=== PATIENT | female | born 1955 | race Caucasian/White ===

== ENCOUNTER 2020-07-11 10:49 | Outpatient (REF) | payer MEDICARE, MEDICAID, SELFPAY ==
[2020-07-11 13:47] LABS: MANUAL DIFF FLAG NO
[2020-07-11 13:59] LABS: Basophils Percent Auto 0.6 % (0-2); Eosinophils Absolute Auto 0.2 X10*3/uL (0.0-0.4); Eosinophils Percent Auto 4.3 % (0-4); Hematocrit 45.8 % (37-47); Hemoglobin 15.4 g/dl (12.0-16.0); Imm Gran Abs Auto 0.01 X10*3/uL (0.00-0.03); Imm Gran Pct Auto 0.2 % (0.0-0.4); Lymphocytes Absolute Auto 1.6 X10*3/uL (1.2-4.9); Lymphocytes Percent Auto 34.2 % (20-40); Mean Corpuscular HGB Conc 33.6 g/dl (31.0-35.0); Mean Corpuscular Hemoglobin 31.6 pg (27.0-33.0); Mean Platelet Volume 10.2 fL (9.4-12.3); Monocytes Absolute Auto 0.4 X10*3/uL (0.1-1.2); Monocytes Percent Auto 8.9 % (2-11); Neutrophils Absolute Auto 2.4 X10*3/uL (2.0-8.3); Neutrophils Percent Auto 51.8 % (45-73); Platelet Count 310 X10*3/uL (160-400); Red Blood Count 4.87 X10*6/uL (4.20-5.50); Red Cell Distribution Width 11.7 % (11.0-16.0); White Blood Count 4.6 X10*3/uL (4.8-10.8)
[2020-07-11 14:10] LABS: Alanine Aminotransferase 23 U/L (0-31); Alkaline Phosphatase 68 U/L (39-117); Anion Gap 13 (12-20); Aspartate Amino Transferase 19 U/L (5-31); Bilirubin Total 0.4 mg/dL (0.0-1.0); Blood Urea Nitrogen 15 mg/dL (9-16); Calcium 9.8 mg/dL (8.4-10.2); Carbon Dioxide 29 mmol/L (22-29); Chloride 105 mmol/L (96-108); Cholesterol 165 mg/dL; Estimated Glomerular Filt Rate > 60; Glucose Random 61 mg/dL (60-115); Potassium 4.6 mmol/l (3.3-5.1); Sodium 142 mmol/L (135-145); Total Protein 6.4 g/dL (6.5-8.0)
[2020-07-11 14:34] LABS: Vitamin D 25-OH Total 49.3 ng/mL (>30)
== END 2020-07-11 10:50 | disposition home or self-care (01) ==
LOC: HO.10HDL 10:49
PROVIDERS: Visit Provider Internal Medicine
DX: M81.0 Age-related osteoporosis without current pathological fracture (principal); G11.11 Friedreich ataxia
CPT/HCPCS: 36415; 80053; 82306; 82465; 85025

== ENCOUNTER 2022-01-06 10:20 | Outpatient (REF) | payer MEDICARE, MEDICAID, SELFPAY ==
[2022-01-06 10:55] LABS: MANUAL DIFF FLAG NO
[2022-01-06 11:55] LABS: Basophils Percent Auto 0.6 % (0-2); Eosinophils Absolute Auto 0.2 X10*3/uL (0.0-0.4); Eosinophils Percent Auto 3.5 % (0-4); Hematocrit 46.9 % (37.0-47.0); Hemoglobin 15.4 g/dl (12.0-16.0); Imm Gran Abs Auto 0.01 X10*3/uL (0.00-0.03); Imm Gran Pct Auto 0.2 % (0.0-0.4); Lymphocytes Absolute Auto 1.7 X10*3/uL (1.2-4.9); Lymphocytes Percent Auto 32.6 % (20-40); Mean Corpuscular HGB Conc 32.8 g/dl (31.0-35.0); Mean Corpuscular Hemoglobin 30.8 pg (27.0-33.0); Mean Corpuscular Volume 93.8 fL (80.0-98.0); Mean Platelet Volume 10.3 fL (9.4-12.3); Monocytes Absolute Auto 0.5 X10*3/uL (0.1-1.2); Monocytes Percent Auto 9.2 % (2-11); Neutrophils Absolute Auto 2.8 x10*3/uL (2.0-8.3); Neutrophils Percent Auto 53.9 % (45-73); Platelet Count 283 X10*3/uL (160-400); Red Cell Distribution Width 12.2 % (11.0-16.0); White Blood Count 5.1 X10*3/uL (4.8-10.8)
[2022-01-06 12:30] LABS: Thyroid Stimulating Hormone 1.27 uIU/mL (0.32-4.0); Vitamin D 25-OH Total 47.2 ng/mL (>30)
[2022-01-06 12:34] LABS: Alanine Aminotransferase 22 U/L (0-31); Alkaline Phosphatase 61 U/L (39-117); Anion Gap 12 (12-20); Aspartate Amino Transferase 17 U/L (5-31); Bilirubin Total 0.4 mg/dL (0.0-1.0); Blood Urea Nitrogen 18 mg/dL (9-16); Calcium 9.9 mg/dL (8.4-10.2); Carbon Dioxide 26 mmol/L (22-29); Chloride 107 mmol/L (96-108); Cholesterol 170 mg/dL; Estimated Glomerular Filt Rate > 60; Glucose Random 64 mg/dL (60-115); Potassium 4.4 mmol/L (3.3-5.1); Sodium 141 mmol/L (135-145); Total Protein 6.4 g/dL (6.5-8.0)
[2022-01-06 12:43] LABS: Vitamin B12 847 pg/mL (200-900)
== END 2022-01-06 10:21 | disposition home or self-care (01) ==
LOC: HO.LAB 10:20
PROVIDERS: PCP Internal Medicine; Visit Provider Internal Medicine
DX: M81.0 Age-related osteoporosis without current pathological fracture (principal); G11.11 Friedreich ataxia
CPT/HCPCS: 36415; 80053; 82306; 82465; 82607; 84443; 85025

== ENCOUNTER 2022-07-06 10:54 | Outpatient (REF) | payer MEDICARE, MEDICAID, SELFPAY ==
[2022-07-06 13:46] LABS: MANUAL DIFF FLAG NO
[2022-07-06 13:51] LABS: Basophils Percent Auto 0.7 % (0-2); Eosinophils Absolute Auto 0.1 X10*3/uL (0.0-0.4); Eosinophils Percent Auto 2.2 % (0-4); Hematocrit 45.4 % (37.0-47.0); Hemoglobin 15.5 g/dl (12.0-16.0); Imm Gran Abs Auto 0.02 X10*3/uL (0.00-0.03); Imm Gran Pct Auto 0.4 % (0.0-0.4); Lymphocytes Absolute Auto 1.6 X10*3/uL (1.2-4.9); Lymphocytes Percent Auto 35.1 % (20-40); Mean Corpuscular HGB Conc 34.1 g/dl (31.0-35.0); Mean Corpuscular Hemoglobin 32.1 pg (27.0-33.0); Mean Platelet Volume 10.7 fL (9.4-12.3); Monocytes Absolute Auto 0.4 X10*3/uL (0.1-1.2); Monocytes Percent Auto 8.5 % (2-11); Neutrophils Absolute Auto 2.5 x10*3/uL (2.0-8.3); Neutrophils Percent Auto 53.1 % (45-73); Platelet Count 290 X10*3/uL (160-400); Red Blood Count 4.83 X10*6/uL (4.20-5.50); Red Cell Distribution Width 11.9 % (11.0-16.0); White Blood Count 4.6 X10*3/uL (4.8-10.8)
[2022-07-06 14:05] LABS: Anion Gap 13 (12-20); Blood Urea Nitrogen 20 mg/dL (9-16); Calcium 9.4 mg/dL (8.4-10.2); Carbon Dioxide 27 mmol/L (22-29); Chloride 106 mmol/L (96-108); Estimated Glomerular Filt Rate > 60; Glucose Random 68 mg/dL (60-115); Potassium 4.3 mmol/L (3.3-5.1); Sodium 142 mmol/L (135-145)
[2022-07-06 14:29] LABS: Vitamin D 25-OH Total 45.2 ng/mL (>30)
== END 2022-07-06 10:55 | disposition home or self-care (01) ==
LOC: HO.10HDL 10:54
PROVIDERS: Visit Provider Internal Medicine
DX: M81.0 Age-related osteoporosis without current pathological fracture (principal)
CPT/HCPCS: 36415; 80048; 82306; 85025

== ENCOUNTER 2023-01-27 09:05 | Outpatient (REF) | payer MEDICARE, MEDICAID, SELFPAY | END 2023-01-27 09:06 | disposition home or self-care (01) | LOC: HO.HAP 09:05 | PROVIDERS: Visit Provider Internal Medicine | DX: Z46.1 Encounter for fitting and adjustment of hearing aid (principal); H90.3 Sensorineural hearing loss, bilateral | CPT/HCPCS: V5266 ==

== ENCOUNTER 2024-05-01 09:15 | Outpatient (REF) | payer MEDICARE, MEDICAID, SELFPAY | END 2024-05-01 09:16 | disposition home or self-care (01) | LOC: HO.HAP 09:15 | PROVIDERS: Visit Provider Internal Medicine | DX: Z46.1 Encounter for fitting and adjustment of hearing aid (principal); H90.3 Sensorineural hearing loss, bilateral; M81.0 Age-related osteoporosis without current pathological fracture; G11.11 Friedreich ataxia | CPT/HCPCS: 36415; 80053; 82306; 82465; 82607; 85025; V5266 ==

== ENCOUNTER 2024-05-01 11:10 | Outpatient (REF) | payer MEDICARE, MEDICAID, SELFPAY ==
[2024-05-01 13:14] LABS: MANUAL DIFF FLAG NO
[2024-05-01 13:19] LABS: Basophils Percent Auto 0.6 % (0-2); Eosinophils Absolute Auto 0.2 X10*3/uL (0.0-0.4); Eosinophils Percent Auto 3.4 % (0-4); Hematocrit 46.4 % (37.0-47.0); Hemoglobin 15.7 g/dl (12.0-16.0); Imm Gran Abs Auto 0.01 X10*3/uL (0.00-0.03); Imm Gran Pct Auto 0.2 % (0.0-0.4); Lymphocytes Absolute Auto 1.7 X10*3/uL (1.2-4.9); Lymphocytes Percent Auto 35.5 % (20-40); Mean Corpuscular HGB Conc 33.8 g/dl (31.0-35.0); Mean Corpuscular Hemoglobin 31.3 pg (27.0-33.0); Mean Corpuscular Volume 92.4 fL (80.0-98.0); Monocytes Absolute Auto 0.3 X10*3/uL (0.1-1.2); Monocytes Percent Auto 7.3 % (2-11); Neutrophils Absolute Auto 2.5 x10*3/uL (2.0-8.3); Platelet Count 298 X10*3/uL (160-400); Red Blood Count 5.02 X10*6/uL (4.20-5.50); Red Cell Distribution Width 11.9 % (11.0-16.0); White Blood Count 4.7 X10*3/uL (4.8-10.8)
[2024-05-01 13:42] LABS: Alanine Aminotransferase 18 U/L (0-31); Alkaline Phosphatase 67 U/L (39-117); Anion Gap 9 (12-20); Aspartate Amino Transferase 16 U/L (5-31); Bilirubin Total 0.4 mg/dL (0.0-1.0); Blood Urea Nitrogen 14 mg/dL (9-16); Calcium 10.1 mg/dL (8.4-10.2); Carbon Dioxide 30 mmol/L (22-29); Chloride 108 mmol/L (96-108); Cholesterol 180 mg/dL (<200); Estimated Glomerular Filt Rate > 60; Glucose Random 83 mg/dL (60-115); Potassium 4.1 mmol/L (3.3-5.1); Sodium 143 mmol/L (135-145); Total Protein 6.8 g/dL (6.5-8.0)
[2024-05-01 13:47] LABS: Vitamin D 25-OH Total 90.1 ng/mL (>30)
[2024-05-01 14:01] LABS: Vitamin B12 810 pg/mL (200-900)
== END 2024-05-01 11:11 | disposition home or self-care (01) ==
LOC: HO.10HDL 11:10
PROVIDERS: Visit Provider Internal Medicine
DX: M19.90 Unspecified osteoarthritis, unspecified site (principal); G11.11 Friedreich ataxia
CPT/HCPCS: 36415; 80053; 82306; 82465; 82607; 85025

== ENCOUNTER 2025-02-01 09:57 | Outpatient (AMB) | payer MEDICARE, MEDICAID, SELFPAY ==
--- NOTE | 2025-02-01 10:07 | MHC.PC.OV ---
Vital Signs 02/01/25 10:08 Height 5 ft 4 in Weight 105 lb BMI 18.0 BP 122/78 Blood Pressure Location Rt brachial Position Sitting Pulse 52 Pulse Source Pulse Oximeter Temp 97.8 F Temp Source Axillary Pulse Oximetry (%) 97 Oxygen Delivery Method Room Air Intake Visit Reasons: Routine Gear Setter Required: No Accompanied by: Self / Same As Patient Allergies No Known Allergies Allergy (Verified 02/01/25 10:07) Tobacco use date assessed: 02/01/25 Fall risk assessment: No Falls in past year Last assessed Fall Risk: 02/01/25 Dental Screening Dental Screen Date: 02/01/25 Did you have a dental visit in the last 12 months?: No Did you have a dental problem in the last 6 months where you did not have access to dental care?: No HPI HPI Comments History of Present Illness Details The patient is a 69 year old female with a past medical history of Freidrechs ataxia in , [place], osteoporosis, rosacea presenting for follow up. Last seen by pcp in April. Freidrichs ataxia: Previously seen at [facility] with [place] Levine. bound. Needs help with all ADLS [place]: Saw Dr Velazquez who is retiring. Needs new referral. q3 months cerumen discimpaction No longer do mammograms DXA within the last few years Declines colonoscopy ROS CONSTITUTIONAL: Denies weight loss, fever and chills. HEENT: Denies changes in vision and hearing. RESPIRATORY: Denies SOB and cough. CV: Denies palpitations and CP GI: Denies abdominal pain, nausea, vomiting and diarrhea. : Denies dysuria and urinary frequency. MSK: Denies new myalgia and joint pain. SKIN: Denies rash and pruritus. NEUROLOGICAL: Denies headache PSYCHIATRIC: Denies recent changes in mood. PHYSICAL EXAM: GENERAL: In EYES: EOMI. Anicteric. HENT: Moist mucous membranes. No scleral icterus. No cervical lymphadenopathy. LUNGS: Clear to auscultation bilaterally. CARDIOVASCULAR: Regular rate and rhythm. ABDOMEN: Soft, non-tender +bs EXTREMITIES: No edema. Non-tender. SKIN: No rashes or lesions. Warm. NEUROLOGIC: No focal neurological deficits. CN II-XII grossly intact PSYCHIATRIC: Cooperative. Appropriate mood and affect [facility] Family History Mother No problems noted. Father No problems noted. Social History Housing: House Patient Tobacco Use Status: Never used Tobacco e-Cigarette/Vaping Use: Never Used service: No Current occupational status: disabled Cognitive needs: Yes (wheelchair ) Hearing needs: Yes (bilateral hearing aids ) Vision needs: Yes (reading glasses) Questionnaire PHQ-9 Over the last 2 weeks, how often have you been bothered by any of the following problems? 1. Little interest or pleasure in doing things: not at all 2. Feeling down, depressed, or hopeless: not at all 3. Trouble falling or staying asleep, or sleeping too much: not at all 4. Feeling tired or having little energy: not at all 5. Poor appetite or overeating: not at all 6. Feeling bad about yourself - or that you are a failure or have let yourself or your family down: not at all 7. Trouble concentrating on things, such as reading the newspaper or watching television: not at all 8. Moving or speaking so slowly that other people could have noticed. Or the opposite - being so fidgety or restless that you have been moving around a lot more than usual: not at all 9. Thoughts that you would be better off or of hurting yourself in some way: not at all Total score: 0 Depression Screening Interpretation: Negative Depression Screening Done: Yes 84083 - PHQ-9 Billing: Yes Source: Developed by Drs. Julio Gutierrez, Lana Reinoso, Marco Ro and colleagues, with an educational kristan from [employer]. Thrive Questionnaire Date Thrive assessed: 02/01/25 I am a: Patient Within the past 12 months, did the food you bought not last and you didn't have the money to get more?: Never true Within the past 12 months, did you worry whether your food would run out before you got money to buy more?: Never true Do you have trouble paying for medicines?: No Do you have trouble getting transportation to medical appointments?: No Do you have trouble paying your heating and electricity bill?: No Do you have trouble taking care of your child, family member or friend?: No Do you have trouble with day-to-day activities such as bathing, preparing meals, shopping, managing finances, etc.?: No Are you currently unemployed and looking for a job?: No Are you interested in more education?: No THRIVE Score: 0 AUDIT C Alcohol Use Questionnaire (AUDIT-C) 1. How often do you have a drink containing alcohol?: Never 3. How often do you have six or more drinks on one occasion?: Never Total Score: 0 DIVYA-7 AMB Questionnaire DIVYA-7 Date DIVYA - 7 assessed: 02/01/25 Feeling nervous, anxious, or on edge: 0 = Not at all Not being able to stop or control worryin = Not at all Worrying too much about different things: 0 = Not at all Trouble relaxin = Not at all Being so restless that it is hard to sit still: 0 = Not at all Becoming easily annoyed or irritable: 0 = Not at all Feeling afraid as if something awful might happen: 0 = Not at all Total DIVYA-7 score (0-4 normal; 5-9 mild; 10-14 moderate; 15-21 severe): 0 Source: Developed by Drs. Julio Gutierrez, Lana Reinoso, Marco Ro and colleagues, with an educational kristan from [employer]. Physical exam (Primary Care) Vital Signs: Last Vital Signs Temp 97.8 F 02/01/25 10:08 Pulse 52 02/01/25 10:08 BP 122/78 02/01/25 10:08 Pulse Ox 97 02/01/25 10:08 Oxygen Delivery Method Room Air 02/01/25 10:08 BMI result Body Mass Index 18.0 Tobacco/Smoking Status: Tobacco use Status Tobacco use date assessed 02/01/25 02/01/25 10:18 Patient Tobacco Use Status Never used Tobacco 02/01/25 10:18 e-Cigarette/Vaping Use Never Used 02/01/25 10:18 PHQ-9: PHQ-9 Score PHQ-9: Total score 0 02/01/25 10:18 Depression Screening Interpretation: Negative Thrive Assessment: Date of Thrive Assessment Date Thrive assessed 02/01/25 02/01/25 10:18 Coding Level of Care Code New Pt Level 4 (38134) Complex EM visit Add On G2211 Diagnoses Friedreich ataxia G11.11 Other osteoporosis, unspecified pathological fracture presence M81.8 Osteoporosis type: other Presence of current pathological fracture: unspecified Rosacea L71.9 [place] (hard of hearing) H91.90 Additional Codes PHQ-9 - 64108 - PHQ-9 Billing: Yes ([id number]) Assessment & Plan Assessment & Plan (1) Friedreich ataxia: Code(s): G11.11 - Friedreich ataxia Category: Medical (2) Osteoporosis: Code(s): M81.0 - Age-related osteoporosis without current pathological fracture Category: Medical Qualifiers: Osteoporosis type: other Presence of current pathological fracture: unspecified Qualified Code(s): M81.8 - Other osteoporosis without current pathological fracture (3) Rosacea: Code(s): L71.9 - Rosacea, unspecified Category: Medical (4) [place] (hard of hearing): Code(s): H91.90 - Unspecified hearing loss, unspecified ear Category: Medical Plan 69 year old to establish care Past medical, surgical, social, family reviewed Labs ordered Chronic medical conditions are stable Referral to ENT given her current practitioner is retiring. Orders: Orders Lipid Panel Today H61.20 - Impacted cerumen, unspecified ear, H91.90 - Unspecified hearing loss, unspecified ear, L71.9 - Rosacea, unspecified, M81.0 - Age-related osteoporosis without current pathological fracture, Z13.0 - Encounter for screening for diseases of the blood and blood-forming organs and certain disorders involving the immune mechanism, Z13.220 - Encounter for screening for lipoid disorders, Z13.228 - Encounter for screening for other metabolic disorders Vitamin D 25-OH (D2 and D3) Today H61.20 - Impacted cerumen, unspecified ear, H91.90 - Unspecified hearing loss, unspecified ear, L71.9 - Rosacea, unspecified, M81.0 - Age-related osteoporosis without current pathological fracture, Z13.0 - Encounter for screening for diseases of the blood and blood-forming organs and certain disorders involving the immune mechanism, Z13.220 - Encounter for screening for lipoid disorders, Z13.228 - Encounter for screening for other metabolic disorders Complete Blood Count Auto Diff Today H61.20 - Impacted cerumen, unspecified ear, H91.90 - Unspecified hearing loss, unspecified ear, L71.9 - Rosacea, unspecified, M81.0 - Age-related osteoporosis without current pathological fracture, Z13.0 - Encounter for screening for diseases of the blood and blood-forming organs and certain disorders involving the immune mechanism, Z13.220 - Encounter for screening for lipoid disorders, Z13.228 - Encounter for screening for other metabolic disorders Comprehensive Met. Panel Today H61.20 - Impacted cerumen, unspecified ear, H91.90 - Unspecified hearing loss, unspecified ear, L71.9 - Rosacea, unspecified, M81.0 - Age-related osteoporosis without current pathological fracture, Z13.0 - Encounter for screening for diseases of the blood and blood-forming organs and certain disorders involving the immune mechanism, Z13.220 - Encounter for screening for lipoid disorders, Z13.228 - Encounter for screening for other metabolic disorders Referrals Ear/Nose/Throat Referral H61.20 - Impacted cerumen, unspecified ear, H91.90 - Unspecified hearing loss, unspecified ear
[2025-02-01 10:08] VITALS: BP 122/78; PULSE 52; TEMP 36.6; O2SAT 97; BMI 18.0
== END 2025-02-01 10:51 | disposition home or self-care (01) ==
LOC: HO.HMCHD 09:57
PROVIDERS: PCP Internal Medicine; Visit Provider Internal Medicine
DX: G11.11 Friedreich ataxia (principal); M81.8 Other osteoporosis without current pathological fracture; L71.9 Rosacea, unspecified; H91.90 Unspecified hearing loss, unspecified ear

== ENCOUNTER → 2025-02-01 09:57 | Outpatient (BNVA) | payer MEDICARE, MEDICAID, SELFPAY | PROVIDERS: PCP Internal Medicine; Visit Provider Internal Medicine | DX: Z13.89 Encounter for screening for other disorder (principal) | CPT/HCPCS: 96127; 99202 ==

== ENCOUNTER 2025-02-01 10:55 | Outpatient (REF) | payer MEDICARE, MEDICAID, SELFPAY ==
[2025-02-01 14:24] LABS: MANUAL DIFF FLAG NO
[2025-02-01 14:30] LABS: Basophils Percent Auto 0.8 % (0-2); Eosinophils Absolute Auto 0.1 X10*3/uL (0.0-0.4); Eosinophils Percent Auto 1.9 % (0-4); Hematocrit 46.5 % (37.0-47.0); Hemoglobin 15.6 g/dl (12.0-16.0); Lymphocytes Absolute Auto 1.7 X10*3/uL (1.2-4.9); Lymphocytes Percent Auto 35.1 % (20-40); Mean Corpuscular HGB Conc 33.5 g/dl (31.0-35.0); Mean Corpuscular Hemoglobin 31.2 pg (27.0-33.0); Mean Platelet Volume 10.6 fL (9.4-12.3); Monocytes Absolute Auto 0.5 X10*3/uL (0.1-1.2); Monocytes Percent Auto 9.5 % (2-11); Neutrophils Absolute Auto 2.5 x10*3/uL (2.0-8.3); Neutrophils Percent Auto 52.7 % (45-73); Platelet Count 321 X10*3/uL (160-400); Red Cell Distribution Width 11.9 % (11.0-16.0); White Blood Count 4.8 X10*3/uL (4.8-10.8)
[2025-02-01 14:58] LABS: Alanine Aminotransferase 23 U/L (0-31); Albumin Level 3.9 g/dL (3.5-5.0); Anion Gap 11 (12-20); Aspartate Amino Transferase 24 U/L (5-31); Bilirubin Total 0.4 mg/dL (0.0-1.0); Blood Urea Nitrogen 24 mg/dL (9-16); Calcium 9.8 mg/dL (8.4-10.2); Carbon Dioxide 28 mmol/L (22-29); Chloride 108 mmol/L (96-108); Cholesterol 175 mg/dL (<200); Estimated Glomerular Filt Rate > 60; Glucose Random 84 mg/dL (60-115); HDL Cholesterol 65 mg/dL (>40); LDL Cholesterol Calculated 99 mg/dL (<100); Potassium 3.9 mmol/L (3.3-5.1); Sodium 143 mmol/L (135-145); Total Protein 6.6 g/dL (6.5-8.0); Triglycerides 55 mg/dL (<150)
[2025-02-01 15:52] LABS: Alkaline Phosphatase 59 U/L (39-117)
[2025-02-05 12:28] LABS: Vitamin D 25-OH, D2 <4 ng/mL; Vitamin D 25-OH, D3 45 ng/mL; Vitamin D 25-OH, Total 45 ng/mL (30-100)
== END 2025-02-01 10:56 | disposition home or self-care (01) ==
LOC: HO.10HDL 10:55
PROVIDERS: Visit Provider Internal Medicine
DX: M81.0 Age-related osteoporosis without current pathological fracture (principal); H61.20 Impacted cerumen, unspecified ear; L71.9 Rosacea, unspecified; Z13.228 Encounter for screening for other metabolic disorders; Z13.0 Encounter for screening for diseases of the blood and blood-forming organs and certain disorders involving the immune mechanism; Z13.220 Encounter for screening for lipoid disorders
CPT/HCPCS: 36415; 80053; 80061; 82306; 85025; 96127; 99202

== ENCOUNTER 2025-03-22 11:25 | Outpatient (REF) | payer MEDICARE, MEDICAID, SELFPAY ==
--- OUTSIDE RECORDS SUMMARY | 2025-03-22 12:12 | XMS_ITS ---
Author Name [facility] Organization Unknown Care Team Organization Name Specialty Phone Email Start Date End [facility] 02/08/2025
--- OUTSIDE RECORDS SUMMARY | 2025-03-22 12:12 | XMS_ITS | Clinical Summary ---
Author Organization [facility] Address [address] [place] [address] Care Team Providers Care Help Desk Support Name Role Phone Unavailable Primary Care Provider Unavailabl e Encounters Date Type Department Care Team Description 02/15/2025 Orders Only [facility] [place] [address] [place] [address] Natalie Neal MD from Last 3 Months Social History Tobacco Use Types Packs/Day Years Used Date Smoking Tobacco: Never Assessed Comments Unknown Sex and Gender Information Value Date Recorded Sex Assigned at Not on file Legal Sex Female 1:43 PM EDT Gender Identity Not on file Sexual Orientation Not on file Plan of Treatment Health Maintenance Due Date Last Done Comments Hepatitis C Virus Screening 1955 DTaP/Tdap/Td Vaccines (1 - Tdap) 1975 Mammogram 1996 Colonoscopy 2001 Pneumococcal Vaccines 50+ (1 of 1 - PCV) 2006 Zoster (Shingles) Vaccine (1 of 2) 2006 DXA Bone Density (Females,Ag es 65 and older) 2021 COVID-19 Vaccine ( - 2023-2 5 season) 2024 Influenza Vaccine 04/20/2025 RSV Vaccine 60 years and old er and Patients (1 - 1-dose 75+ series) 2031 Hepatitis B Vaccines Aged Out No long er eligible based on patient's age to complete this topic Procedures Procedure Name Priority Date/Time Associated Diagnosis Comments AMB REFERRAL TO ENT Routine 02/09/2025 10:32 AM EDT from Last 3 Months Results * Amb Referral to ENT (02/09/2025 10:32 AM EDT) Natalie Neal MD OUTPATIENT REFERRAL ORDERABLES Final Result from Last 3 Months Insurance MEDICARE PART A & B
== END 2025-03-22 11:26 | disposition home or self-care (01) ==
LOC: HO.SH 11:25
PROVIDERS: Visit Provider Internal Medicine
DX: Z01.118 Encounter for examination of ears and hearing with other abnormal findings (principal)
CPT/HCPCS: V5266

== ENCOUNTER 2025-03-24 12:06 | Emergency (ER) | payer MEDICARE, MEDICAID, SELFPAY ==
--- NOTE | ~2025-03-24 | XR_ITS ---
CLINICAL HISTORY: pain, injury 3 view right hand Comparison: None provided Findings: Minimally displaced fracture involving the distal right 5th metacarpal. No erosions. No radiopaque foreign body. IMPRESSION: Minimally displaced fracture involving the distal right 5th metacarpal. This document has been electronically signed by: Alfredo Prasad MD on 03/24/2025 12:56:54
--- NOTE | ~2025-03-24 | XR_ITS ---
CLINICAL HISTORY: pain, injury 4 view right wrist Comparison: None provided Findings: Minimally displaced fracture along the distal right 5th metacarpal. No radiopaque foreign body. IMPRESSION: Minimally displaced fracture along the distal right 5th metacarpal. This document has been electronically signed by: Alfredo Prasad MD on 03/24/2025 12:56:10
[2025-03-24 12:07] VITALS: BP 127/81; PULSE 84; RESP 16; TEMP 36.6; O2SAT 95; BMI 23.3
--- NOTE | 2025-03-24 12:09 | ED_ITS ---
HPI - General Adult General Chief complaint: Fall Stated complaint: R Hand Injury Fall Last Week Time Seen by Provider: 03/24/25 12:41 Source: patient and family (patient's sister) Mode of arrival: wheelchair Limitations: no limitations History of Present Illness ED Provider: Ashley Hudson PA-C HPI narrative: Patient is a 69 year old assigned female at with a history of friedreich ataxia, rosacea, osteoporosis, and hard of hearing (with hearing aids) presenting to the emergency department today with right hand pain after sliding out of her wheelchair. Patient states that last week she slid out of her wheel chair and injured her right hand. Patient denies any head strike, loss of consciousness, dizziness, lightheadedness, abdominal pain, nausea, vomiting, fever, chills, blurry vision, double vision, loss of vision, chest pain, difficulty breathing, shortness of breath, back pain, night sweats, pain with urination, increased urinary frequency, increased urinary urgency, blood in her urine or stool, syncope or a near syncopal episode, bowel incontinence, bladder incontinence, or any other complaints at this time. Onset (ago): day(s) Location: right and upper extremity Relieving factors: none Exacerbating factors: none Associated symptoms: denies other symptoms Treatments prior to arrival: none Related Data Home Medications ?Medication ?Instructions ?Recorded ?Confirmed calcium 600 mg capsule mg PO 02/01/25 Allergies Allergy/AdvReac Type Severity Reaction Status Date / Time No Known Allergies Allergy Verified 03/24/25 12:11 Review of Systems Constitutional: Constitutional: Reports no additional constitutional compl aints, Denies chills, Denies fever(s) and Denies night sweats Eyes: Eyes: Reports no additional eye complaints, Denies blurry vision, Denies change in vision, Denies diplopia, Denies eye discharge, Denies loss of vision and Denies eye pain ENT: Denies dizziness Cardiovascular: Cardiovascular: Reports no additional cardiovascular complaints, Denies chest pain, Denies lightheadedness, Denies Loss of Consciousness and Denies dyspnea Respiratory: Respiratory: Reports no additional respiratory complaints and Denies dyspnea Gastrointestinal: Gastrointestinal: Reports no additional gastrointestinal complaints, Denies abdominal pain, Denies melena, Denies hematochezia, Denies change in bowel habits and Denies change in stool character Genitourinary: Genitourinary: Denies hematuria, Denies urinary frequency, Denies dysuria, Denies urinary incontinence, Denies urinary hesitancy and Denies urinary urgency Musculoskeletal: Musculoskeletal: Reports no additional musculoskeletal complaints, Denies numbness and Denies tingling Comments: right hand pain Neurologic: Denies dizziness, Denies loss of vision, Denies numbness and Denies tingling Psychiatric: Psychiatric: Reports no additional psychiatric complaints Endocrine: Endocrine: Reports no additional endocrine complaints Hematologic/Lymphatic: Hematologic/Lymphatic: Reports no additional hematologic/lymphatic complaints Allergic/Immunologic: Allergic/Immunologic: Reports no additional allergic/immunologic complaints [facility] Past Medical History Attestation statement: The following information was validated with the patient. (all information validated with the patient's sister) Source: old records reviewed, obtained from family (patient's sister provided additional history and confirmed the history provided by the patient.) and nursing notes reviewed Family History Family History Mother No problems noted. Father No problems noted. Social History Social History Housing: House Patient Tobacco Use Status: Never used Tobacco e-Cigarette/Vaping Use: Never Used Advance Directives: Yes Advance Directives Information Provided: No Advance Directives on File: No Do you have a plan to hurt others: No Plan service: No Current occupational status: disabled Cognitive needs: Yes (wheelchair ) Hearing needs: Yes (bilateral hearing aids ) Vision needs: Yes (reading glasses) Physical Exam ED Vital Signs: Vital Signs - 24 hr 03/24/25 12:07 03/24/25 12:48 Temperature 97.8 F 97.8 F Pulse Rate 84 84 Respiratory Rate 16 16 Blood Pressure 127/81 127/81 Pulse Oximetry 95 95 Oxygen Delivery Method Room Air Room Air BMI result Body Mass Index 23.3 Const General: cooperative, no acute distress, alert and awake Nutritional Appearance: well nourished Orientation/consciousness: patient oriented x3 HENMT Head: Yes normal to inspection and Yes atraumatic Ears: hearing grossly normal bilaterally and external ears normal General nose exam: Normal external nose present, no nasal discharge noted and no epistaxis Face and sinus: Yes normal facial exam, No abrasion and No laceration Mouth: Normal oral and palatal mucosa present, no drooling and no muffled voice Eyes General: appearance normal, both eyes and all related structures Periorbital: periorbital findings normal Eyelids: Yes eyelids normal Conjunctivae: conjunctivae normal Pupils: Equal, round and reactive pupils present EOM: EOMs intact bilaterally Neck Neck: Yes normal visual inspection, Yes full ROM and Yes no lymphadenopathy Resp Effort & Inspection: normal respiratory effort and able to speak in complete sentences Neuro General: patient oriented x3, moves all extremities and CN's II-XI intact bilaterally Cranial nerves: Yes Equal, round and reactive pupils present Cognition (Neuro): normal cognition Extrem Other: pain with palpation of the right 5th metacarapal General: Yes normal to inspection, Yes full ROM and Yes capillary refill normal Psych Appearance: grossly normal Mental Status: mental status grossly normal Affect: normal affect Attitude: cooperative Thought process: Normal thought process present Thought content: Normal thought content present Insight: Good insight present (Psych) Course Course Course Narrative: RME performed by Ashley Hudson PA-C. Patient is a 69 year old assigned female at presenting to the emergency department with right hand pain. Patient states last week she fell onto her wheelchair and injured her right hand. Detailed physical exam and review of systems are deferred to the team primary care physician. Imaging ordered. Patient placed back in the waiting room pending room availability and results. Procedures Orthopedic Splinting/Casting Injury #1: Side: right Upper Extremity Injury Location: hand Upper Extremity Immobilizer: ulnar gutter Medical Decision Making Medical Decision Making MDM Narrative: Patient is a 69 year old assigned female at with a history of friedreich ataxia, rosacea, osteoporosis, and hard of hearing (with hearing aids) presenting to the emergency department today with right hand pain after sliding out of her wheelchair. Patient's physical exam was as noted in the physical exam portion of this note. Patient's right hand / wrist x-rays showed a 5th met acarpal fracture. I explained my physical exam findings as well as all test results to the patient and the patient's sister. I answered all questions asked by the patient and the patient's sister. Patient's right hand was placed in an ulnar gutter splint. Patient's PMS was intact prior to and after splint placement. I stressed the importance of the patient taking her medication as directed (either prescribed or as the over the counter packaging recommends). I stressed the importance of the patient following up with her primary care provider and the orthopedic team. I stressed the importance of the patient returning to the emergency department immediately if her symptoms were to worsen or if she were to develop any dizziness, shortness of breath, difficulty breathing, chest pain, blurry vision, loss of vision, nausea, vomiting, abdominal pain, fever, chills, back pain, or any other complaints. Patient and the patient's sister verbalized agreement and understanding with this treatment plan and discharge. Differential Diagnosis Differential Diagnoses: The differential diagnosis associated with the presentation includes Right 5th metacarpal fracture Right hand fracture Admission/Observation Consideration of admission/observation: Escalation of care including admission/observation considered Patient would have been admitted to the hospital had her work up had any findings where hospital admission was appropriate and her clinical presentation warranted hospital admission. Independent Interpretation I performed an independent interpretation of an: Plain X-Ray Interpretation: My interpretation is in agreement with the radiologist's impression of these imaging studies. CLINICAL HISTORY: pain, injury 4 view right wrist Comparison: None provided Findings: Minimally displaced fracture along the distal right 5th metacarpal. No radiopaque foreign body. IMPRESSION: Minimally displaced fracture along the distal right 5th metacarpal. This document has been electronically signed by: Alfredo Prasad MD on 03/24/2025 12:56:10 Dictated By: Alfredo Prasad MD Signed By: Electronically signed by Alfredo Prasad MD 03/24/25 1257 CLINICAL HISTORY: pain, injury 3 view right hand Comparison: None provided Findings: Minimally displaced fracture involving the distal right 5th metacarpal. No erosions. No radiopaque foreign body. IMPRESSION: Minimally displaced fracture involving the distal right 5th metacarpal. This document has been electronically signed by: Alfredo Prasad MD on 03/24/2025 12:56:54 Dictated By: Alfredo Prasad MD Signed By: Electronically signed by Alfredo Prasad MD 03/24/25 1716 Radiology Impression Discussion of test interpretation with radiology: I have reviewed the radiologist's reading. Independent Historian Clinical information obtained from an independent historian. History obtained from or confirmed by: Other (patient's sister provided additional history and confirmed the history provided by the patient.) Discharge Plan Discharge Clinical Impression: Fracture of hand Patient Disposition: Home, Self-Care Instructions: Hand Fracture (ED) Additional Instructions: Do NOT get your splint wet. Do NOT remove your splint. If you have any change in sensation, movement, or color of your right finger tips - you may loosen the outer ORION wraps. If you find yourself loosening the ORION wraps to the point of seeing the white splint material underneath - STOP and proceed to your closest Emergency Department, immediately. Follow up with your primary care provider and the orthopedic team. Return to the emergency department immediately if your symptoms worsen or if you develop any numbness, tingling, dizziness, shortness of breath, difficulty breathing, chest pain, blurry vision, loss of vision, nausea, vomiting, abdominal pain, fever, chills, back pain, or any other complaints. Please see the information below about our Patient Portal. If you are not yet enrolled in the [facility] Patient Portal, you will receive an enrollment email invitation following your visit to any [facility] setting. You may also self-enroll in the Patient Portal by visiting our website: [email or web address] The following information is required to access the Patient Portal: - Your [facility] Medical Record Number - Your personal home email address (must match what is in your electronic medical record, Registration staff can assist with this) - Name - Date of Capabilities of the Patient Portal: - Message some providers - View upcoming appointments - Access your health summary, medical history, and visit history - View current conditions and allergies - View procedure and lab results - View your medications, including guidelines, side effects, and precautions - Complete pre-appointment questionnaires requested by your provider - Ready summary reports of your office visits and procedures To access the Patient Portal Mobile Fe, follow these directions: - Search [employer] in the Fe Store or [employer] Store - Download the Fe - Search for [facility] - Enter your login/password Prescriptions: No Action calcium 600 mg capsule PO Referrals: [facility] Orthopedic Surgeons [Provider Group] Referral Note: Call to establish and follow up with the orthopedic team. Natalie Neal MD [Primary Care Provider, Endocrinology] Interventions: ED Discharge Assessment Last Done: 03/24/25 12:48 Discharge Date/Time: 03/24/25 12:53 Print Language: Ugandan
[2025-03-24 12:48] VITALS: BP 127/81; PULSE 84; RESP 16; TEMP 36.6; O2SAT 95
== END 2025-03-24 12:53 | disposition home or self-care (01) ==
PROVIDERS: Emergency Provider Emergency Medicine; PCP Internal Medicine
DX: S62.396A Other fracture of fifth metacarpal bone, right hand, initial encounter for closed fracture (principal); M79.641 Pain in right hand; R27.0 Ataxia, unspecified; H91.93 Unspecified hearing loss, bilateral; W05.0XXA Fall from non-moving wheelchair, initial encounter; Y93.9 Activity, unspecified; Y92.9 Unspecified place or not applicable; Y99.9 Unspecified external cause status
CPT/HCPCS: 29125; 73110; 73120; 99282; 99284

== ENCOUNTER → 2025-03-24 12:10 | Outpatient (BNV) | payer MEDICARE, MEDICAID, SELFPAY | PROVIDERS: Emergency Provider Emergency Medicine; PCP Internal Medicine; Visit Provider Radiology Vascular & Interventional Radiology | DX: M25.531 Pain in right wrist (principal); S62.356A Nondisplaced fracture of shaft of fifth metacarpal bone, right hand, initial encounter for closed fracture | CPT/HCPCS: 73110; 73120 ==

== ENCOUNTER 2025-03-30 07:03 | Outpatient (REF) | payer MEDICARE, MEDICAID, SELFPAY ==
--- NOTE | ~2025-03-30 | XR_ITS ---
EXAMINATION: XR HAND, RIGHT CLINICAL INFORMATION: M79.641 - Pain in right hand COMPARISON: March 24, 2025 demonstrated a distal fifth metacarpal fracture. TECHNIQUE: PA, lateral, and oblique views of the right hand. FINDINGS: Fiberglas cast. There is a volar displaced fracture distal fifth metacarpal without callus formation. XR/XR hand RT min 3V IMPRESSION: No healing at the volar displaced fracture fifth metacarpal. Electronically signed by: Samuel Thakkar MD 03/30/2025 09:35 AM EDT
--- OUTSIDE RECORDS SUMMARY | 2025-04-02 07:05 | XMS_ITS | Clinical Summary ---
Author Organization [facility] Address [address] [place] [address] Care Team Providers Care Gas Engine Operator Name Role Phone Unavailable Primary Care Provider Unavailabl e Encounters Date Type Department Care Team Description 02/15/2025 Orders Only [facility] [place] [address] [place] [address] Natalie Neal MD from Last [...]
== END 2025-03-30 07:04 | disposition home or self-care (01) ==
LOC: HO.HOSX 07:03
PROVIDERS: Visit Provider Orthopaedic Surgery
DX: M79.641 Pain in right hand (principal); S62.336A Displaced fracture of neck of fifth metacarpal bone, right hand, initial encounter for closed fracture; W05.0XXA Fall from non-moving wheelchair, initial encounter; Y92.9 Unspecified place or not applicable
CPT/HCPCS: 26600; 73130; 99202; 99212

== ENCOUNTER 2025-03-30 08:45 | Outpatient (AMB) | payer MEDICARE, MEDICAID, SELFPAY ==
--- OUTSIDE RECORDS SUMMARY | 2025-03-30 08:54 | XMS_ITS | Clinical Summary ---
Author Organization [facility] Address [address] [place] [address] Care Team Providers Care Bush And Vine Farmer Fruit Crops Name Role Phone Unavailable Primary Care Provider Unavailabl e Encounters Date Type Department Care Team Description 02/15/2025 Orders Only [facility] [place] [address] [place] [address] Natalie Neal MD from Last [...]
--- NOTE | 2025-03-30 09:11 | A.OFFVIS_ITS ---
Intake Visit Reasons: ED FU - RT 5th distal MC displaced fracture Intake Note: Valery is a 69 year old right hand dominant female who presents today for a fracture care visit for her Right 5th Metacarpal Fracture. Patient reports that about 03/13/25 while on vacation she slid out of her wheelchair and her fingers got caught in the wheelchair when she slid out. She reports no pain. She has difficult time with ROM of fingers at baseline. She was seen at [facility] on 03/24/25 where she was placed in an ulnar gutter cast (Ulnar gutter splint did not extend along the length of fingers, stopped at base of 5th digit). Splint removed today in clinic. 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 She evidently struck her right 5th MCP joint while in her wheelchair on vacation on 03/24/2025. She complains of pain and swelling in the right hand She evidently lives with her brother and there are multiple caretakers who come to care for her in the home. [facility] Family History Mother No problems noted. Father No problems noted. Social History Housing: House Patient Tobacco Use Status: Never used Tobacco e-Cigarette/Vaping Use: Never Used service: No Current occupational status: disabled Cognitive needs: Yes (wheelchair ) Hearing needs: Yes (bilateral hearing aids ) Vision needs: Yes (reading glasses) Physical Exam Const General: cooperative, healthy appearing and no acute distress Orientation/consciousness: oriented to person and oriented to place HEENT Head: Yes normocephalic and Yes atraumatic Eyes EOM: EOMs intact bilaterally Resp Effort & Inspection: normal respiratory effort Cardio Jugular venous distension: no JVD Skin General skin exam: turgor normal Rashes: no rashes Neuro General: oriented to person and oriented to place Extrem Other: Evaluation of right Upper Extremity: She is in a wheelchair. She does appear to have some spasticity and weakness. She has difficulty with speech and does have some hearing impairment as well, but is able to participate in the exam and understands well what we are talking about and can participate. . She does have some swelling in the right hand. She is tender to palpation over the 5th MCP joint. No tenderness to palpation at the wrist, other metacarpals or digits. No lacerations or evidence of open injury. No rotational malalignment. She can actively flex and extend her fingers some, but does have chronic difficulty with active extension of her hand. Radiographs: Radiographs three views of the right hand taken today in clinic and reviewed by me show a right 5th metacarpal neck fracture with some mild displacement of. Some mild radial translation of the fracture site. Otherwise fracture alignment is generally satisfactory. Psych Appearance: grossly normal Affect: normal affect Attitude: cooperative Office Procedures AMB Fracture Care Details: Fracture care metacarpal fracture 16556 Fracture Billing Code: Fracture Billing Code Assessment & Plan Assessment & Plan (1) Closed displaced fracture of neck of right fifth metacarpal bone: Code(s): S62.336A - Displaced fracture of neck of fifth metacarpal bone, right hand, initial encounter for closed fracture Category: Medical Plan Assessment and plan: 1. Right 5th metacarpal neck fracture Date of injury 03/24/2025 I educated the patient and her sister about this injury. We discussed operative and non operative treatment options. I believe we can manage this well non operatively. We fitted her with a Velcro wrist splint and dania tape the small and ring fingers together allowing for motion. Follow up in 3-4 weeks with new radiographs three views of the right hand. We will also check range of motion. Orders: Orders XR hand RT min 3V Today M79.641 - Pain in right hand Coding Level of Care Code New Pt Level 3 (33716) Diagnoses Closed displaced fracture of neck of right fifth metacarpal bone S62.336A CPT Codes Fracture Care - Fracture Billing Code: Fracture Billing Code ([id number])
== END 2025-03-30 10:01 | disposition home or self-care (01) ==
PROVIDERS: PCP Internal Medicine; Visit Provider Orthopaedic Surgery
DX: S62.336A Displaced fracture of neck of fifth metacarpal bone, right hand, initial encounter for closed fracture (principal)
CPT/HCPCS: 26600; 99203

== ENCOUNTER → 2025-03-30 08:59 | Outpatient (BNV) | payer MEDICARE, MEDICAID, SELFPAY | PROVIDERS: Visit Provider Radiology Diagnostic Radiology | DX: S62.326K Displaced fracture of shaft of fifth metacarpal bone, right hand, subsequent encounter for fracture with nonunion (principal) | CPT/HCPCS: 73130 ==

== ENCOUNTER 2025-03-30 09:49 | Outpatient (AMB) | payer MEDICARE, MEDICAID, SELFPAY ==
--- NOTE | 2025-03-30 09:51 | MHC.PC.OV ---
Vital Signs 03/30/25 09:52 Height 5 ft 5 in Weight 45.359 kg BMI 16.6 BP 104/72 Blood Pressure Location Lt brachial Position Sitting Respiration 15 Pulse 88 Pulse Source Pulse Oximeter Temp 97.8 F Temp Source Temporal Artery Scan Pulse Oximetry (%) 99 Oxygen Delivery Method Room Air Intake Visit Reasons: ED f/u 03/25 School Social Worker Required: No Accompanied by: Sister Allergies No Known Allergies Allergy (Verified 03/30/25 09:53) Tobacco use date assessed: 02/01/25 Dental Screening Dental Screen Date: 02/01/25 HPI HPI Comments History of Present Illness Details 69-year-old female with history of Friedreich's ataxia who is wheelchair-bound presents to the office today accompanied by her sister for ER follow-up. ED provider note and x-rays reviewed. She was seen and evaluated in the ED on 03/24 after falling out of her wheelchair and landing on the right side. Denies head strike or loss of consciousness. Reportedly, she was being bit by flies and was startled ultimately resulting in the fall. She was not complaining of pain immediately after the fall though hand began to swell. In the ED, vitals stable. X-ray of the hand showed minimally displaced fracture involving the distal right 5th metacarpal. She was placed into a wrist splint with dania tape of the 4th and 5th fingers and discharged advised to follow-up with hand surgery. She was seen by Dr. Coulter and hand surgery this morning and repeat hand x-ray showed the displaced fracture of the 5th metacarpal that was not healing. Surgical options were discussed but family and provider agreed on conservative management. She will keep the 4th and 5th fingers of the right hand dania typed and can use the wrist splint to prevent contact with the fractures. She does have sensation in the hands and can move her fingers slightly. Denies pain. ROS: General: No fevers, malaise, unintentional weight loss HEENT: No blurred vision, diplopia. No sore throat, nasal congestion, rhinorrhea, sinus pain, ear pain Cardiovascular: No chest pain, palpitations, or leg edema Respiratory: No shortness of breath, wheezing, cough GI: No abdominal pain, nausea, vomiting, diarrhea, constipation, melena, hematochezia : No dysuria, hematuria, increased urinary frequency, decreased urinary output MSK: See HPI Neuro: No headaches, weakness, paresthesias Skin: No rashes or lesions EXAM: Constitutional - Awake and Alert, No apparent distress Eyes - PERRL Cardiovascular - S1S2, RRR, No edema Respiratory - Normal lung expansion, Normal respiratory effort, No respiratory distress, CTA bilaterally Extremities - no calf tenderness bilaterally MSK - mild swelling and ecchymosis of the right hand. Fourth and 5th fingers are dania taped. Full sensation of the fingers with limited claims consultant Skin - Warm/Dry Neurological - Alert & oriented x3 Psychological - Appropriate affect PFSH Family History Mother No problems noted. Father No problems noted. Social History Housing: House Patient Tobacco Use Status: Never used Tobacco e-Cigarette/Vaping Use: Never Used service: No Current occupational status: disabled Cognitive needs: Yes (wheelchair ) Hearing needs: Yes (bilateral hearing aids ) Vision needs: Yes (reading glasses) Questionnaire PHQ-9 Over the last 2 weeks, how often have you been bothered by any of the following problems? 1. Little interest or pleasure in doing things: not at all 2. Feeling down, depressed, or hopeless: not at all 3. Trouble falling or staying asleep, or sleeping too much: not at all 4. Feeling tired or having little energy: not at all 5. Poor appetite or overeating: not at all 6. Feeling bad about yourself - or that you are a failure or have let yourself or your family down: not at all 7. Trouble concentrating on things, such as reading the newspaper or watching television: not at all 8. Moving or speaking so slowly that other people could have noticed. Or the opposite - being so fidgety or restless that you have been moving around a lot more than usual: not at all 9. Thoughts that you would be better off or of hurting yourself in some way: not at all Total score: 0 Source: Developed by Drs. Julio Gutierrez, Lana Reinoso, Marco Ro and colleagues, with an educational kristan from [employer]. Thrive Questionnaire Date Thrive assessed: 02/01/25 AUDIT C Alcohol Use Questionnaire (AUDIT-C) 1. How often do you have a drink containing alcohol?: Never Total Score: 0 DIVYA-7 AMB Questionnaire DIVYA-7 Date DIVYA - 7 assessed: 02/01/25 Source: Developed by Drs. Julio Gutierrez, Lana Reinoso, Marco Ro and colleagues, with an educational kristan from [employer]. Physical exam (Primary Care) Vital Signs: Last Vital Signs Temp 97.8 F 03/30/25 09:52 Pulse 88 03/30/25 09:52 Resp 15 03/30/25 09:52 BP 104/72 03/30/25 09:52 Pulse Ox 99 03/30/25 09:52 Oxygen Delivery Method Room Air 03/30/25 09:52 BMI result Body Mass Index 16.6 Tobacco/Smoking Status: Tobacco use Status Tobacco use date assessed 02/01/25 03/30/25 10:00 Patient Tobacco Use Status Never used Tobacco 03/30/25 10:00 e-Cigarette/Vaping Use Never Used 03/30/25 10:00 PHQ-9: PHQ-9 Score PHQ-9: Total score 0 03/30/25 10:10 Thrive Assessment: Date of Thrive Assessment Date Thrive assessed 02/01/25 03/30/25 10:00 Coding Level of Care Code Est Pt Level 3 (61470) Diagnoses Closed displaced fracture of neck of right fifth metacarpal bone S62.336A Assessment & Plan Assessment & Plan (1) Closed displaced fracture of neck of right fifth metacarpal bone: Code(s): S62.336A - Displaced fracture of neck of fifth metacarpal bone, right hand, initial encounter for closed fracture Category: Medical Plan: ER notes and hand surgery notes reviewed. XRays reviewed. Continue with plan as outlined by hand surgery. Continue with dania tape of the 4th and 5th fingers and use wrist splint as needed. Follow-up with Orthopedic surgery as scheduled in 3 weeks.
[2025-03-30 09:52] VITALS: BP 104/72; PULSE 88; RESP 15; TEMP 36.6; O2SAT 99; BMI 16.6
== END 2025-03-30 10:49 | disposition home or self-care (01) ==
LOC: HO.HMCHD 09:50
PROVIDERS: PCP Internal Medicine; Visit Provider Physician Assistant
DX: S62.336A Displaced fracture of neck of fifth metacarpal bone, right hand, initial encounter for closed fracture (principal)

== ENCOUNTER 2025-04-18 08:48 | Outpatient (REF) | payer MEDICARE, MEDICAID, SELFPAY ==
--- NOTE | ~2025-04-18 | XR_ITS ---
EXAMINATION: XR HAND 3 OR MORE VIEWS RIGHT HISTORY: M79.641 - Pain in right hand COMPARISON: Comparison is made with the prior examination dated 711 C5. FINDINGS: Three views of the right hand are submitted. Osseous mineralization is normal. Again seen is a mildly displaced fracture of the neck of the 5th metacarpal. Callus formation is seen at the fracture site consistent with healing. The fracture line remains visible. The joint spaces are preserved. The soft tissues are unremarkable. XR/XR hand RT min 3V IMPRESSION: Healing mildly displaced fracture of the neck of the 5th metacarpal. Electronically signed by: Julio Jay MD 04/18/2025 09:43 AM EDT
--- OUTSIDE RECORDS SUMMARY | 2025-04-18 09:07 | XMS_ITS | Clinical Summary ---
Author Organization [facility] Address [address] [place] [address] Care Team Providers Care Brick Unloader Tender Name Role Phone Unavailable Primary Care Provider Unavailabl e Encounters Date Type Department Care Team Description 02/15/2025 Orders Only [facility] [place] [address] [place] [address] Natalie Neal MD from Last [...]
== END 2025-04-18 08:49 | disposition home or self-care (01) ==
LOC: HO.HOSX 08:48
PROVIDERS: Visit Provider Orthopaedic Surgery
DX: S62.336D Displaced fracture of neck of fifth metacarpal bone, right hand, subsequent encounter for fracture with routine healing (principal); M79.641 Pain in right hand; W22.8XXD Striking against or struck by other objects, subsequent encounter
CPT/HCPCS: 73130; 99212

== ENCOUNTER 2025-04-18 09:03 | Outpatient (AMB) | payer MEDICARE, MEDICAID, SELFPAY ==
--- NOTE | 2025-04-18 09:09 | A.OFFVIS_ITS ---
Intake Visit Reasons: Fracture Care - Right 5th MC Fracture 03/13/25 Intake Note: Valery 70 yr old - hand dominant female presents today today for her fracture care visit for her right 5th metacarpal fracture DOI 03/13/25 . Patient with hx of Friedreich's ataxia, states she struck her right 5th MCP joint while in her wheelchair on vacation on 03/24/25. Seen at [facility] ED where she was told she had a fracture and referred to orthopedics. Currently states she has on and off pain and has some weakness. Denies numbness or tingling. 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 She struck her right 5th MCP joint while in her wheelchair on vacation on 03/24/25 sustaining a 5th metacarpal neck fracture. She was treated with a Velcro wrist splint and dania taping. She is here today with her sister. She has been Dania-taping her fingers as instructed. She evidently lives with her brother and there are multiple caretakers who come to care for her in the home. [facility] Family History Mother No problems noted. Father No problems noted. Social History (Updated 04/18/25 @ 09:23 by Karin Morse [facility]) Housing: House Patient Tobacco Use Status: Never used Tobacco e-Cigarette/Vaping Use: Never Used service: No Current occupational status: disabled Current occupation: right hand Cognitive needs: Yes (wheelchair ) Hearing needs: Yes (bilateral hearing aids ) Vision needs: Yes (reading glasses) Review of Systems Const All systems reviewed & are unremarkable except as noted in HPI and below Physical Exam Const General: no acute distress and alert Orientation/consciousness: patient oriented x3 Neuro General: patient oriented x3 Extrem Other: Evaluation of Upper Extremity: The patient is alert, oriented, and in no acute distress She is in a wheelchair. She does appear to have some spasticity and weakness. She has difficulty with speech and does have some hearing impairment as well, but is able to participate in the exam and understands well what we are talking about and can participate. Sensation intact cap refill brisk ROM: She can actively flex and extend her fingers to a closed fist, but does have chronic difficulty with active extension of her hand. No rotational malalignment She feels she is back to her normal hand ROM Resolved swelling in the right hand. Fracture site completely non-tender Radiographs: 3 views of the right hand taken today in clinic and reviewed by me show a right 5th metacarpal neck fracture with some mild displacement. Some mild radial translation of the fracture site. Otherwise fracture alignment is generally satisfactory. Good evidence of interval bony healing Psych Appearance: grossly normal Affect: normal affect Attitude: cooperative Assessment & Plan Assessment & Plan (1) Closed displaced fracture of neck of right fifth metacarpal bone: Code(s): S62.336A - Displaced fracture of neck of fifth metacarpal bone, right hand, initial encounter for closed fracture Category: Medical Plan Assessment and plan: 1. Right 5th metacarpal neck fracture DOI: 03/24/25 Treated non operatively with splinting and dania taping I educated the patient and her sister about this injury. She will begin to wean out of her splint over the next few weeks I discussed activity modifications, she is to lift nothing heavier than a cellphone for the next 2 weeks She will work on gentle finger ROM exercises at home, within limits Follow up prn Scribed for Zohreh Coulter MD by Gideon Chan, medical insurance verifier, on 04/18/25 at 9:25 AM, EST. Orders: Orders XR hand RT min 3V Today M79.641 - Pain in right hand Coding Level of Care Code Global (61927) Diagnoses Closed displaced fracture of neck of right fifth metacarpal bone S62.336A
== END 2025-04-18 09:41 | disposition home or self-care (01) ==
LOC: HO.HOS 09:04
PROVIDERS: PCP Internal Medicine; Visit Provider Orthopaedic Surgery
DX: S62.336A Displaced fracture of neck of fifth metacarpal bone, right hand, initial encounter for closed fracture (principal)
CPT/HCPCS: 99024

== ENCOUNTER → 2025-04-18 09:05 | Outpatient (BNV) | payer MEDICARE, MEDICAID, SELFPAY | PROVIDERS: Visit Provider Radiology Diagnostic Radiology | DX: S62.336D Displaced fracture of neck of fifth metacarpal bone, right hand, subsequent encounter for fracture with routine healing (principal) | CPT/HCPCS: 73130 ==